=== PATIENT | male | born 1985 | race Hispanic/Latino ===

== ENCOUNTER 2021-12-01 11:05 | Emergency (ER) | payer OTHER ==
[~2021-12-01] VITALS: Ht 167.6 cm; Wt 86.2 kg
[2021-12-01 11:07] VITALS: BP 123/82
[2021-12-01] MEDS ORDERED: LACTATED RINGERS 1000ML 1,000 ML IV ONE (11:30)
[2021-12-01] MEDS ORDERED: LIDOCAINE 1%-EPI 1:100,000 20 ML VIAL IJ SCH (12:00)
[2021-12-01] MEDS ORDERED: CLINDAMYCIN 150 MG CAP PO ONE (12:00)
[2021-12-01] MEDS ORDERED: CLIN-141 PO (12:22)
[2021-12-01] MEDS ORDERED: IBUP-2071 PO (12:22)
== END 2021-12-01 12:44 | disposition home or self-care (01) ==
LOC: EDH 11:05
DX: J36 Peritonsillar abscess (principal)
CPT/HCPCS: 99284; 42700; J3490

== ENCOUNTER 2021-12-02 09:21 | Inpatient (IN) | payer OTHER ==
[~2021-12-02] VITALS: Ht 170.2 cm; Wt 88.9 kg
[~2021-12-02 09:21] MED LIST: CLIN-141 PO; IBUP-2071 PO
[2021-12-02] MEDS ORDERED: ONDANSETRON 4MG INJ IV ONE (10:00)
[2021-12-02] MEDS ORDERED: AMP/SULBAC 1.5GM+NS 100ML 100 ML IV SCH ×2 (10:00→14:00)
[2021-12-02] MEDS ORDERED: UNASYN 1.5GM+NS 100ML IV SCH (10:00)
[2021-12-02] MEDS ORDERED: MORPHINE 4 MG SYG IVP ONE (10:00)
[2021-12-02] MEDS ORDERED: SOLU-MEDROL 125MG VIAL IVP ONE (10:00)
[2021-12-02 10:10] LABS: BASOPHILS % (AUTO) 0.5 % (0.0-5.0); EOSINOPHILS % (AUTO) 0.9 % (0.0-8.0); LYMPHOCYTES % (AUTO) 17.4 % (21.0-51.0); MEAN CORPUSCULAR HEMOGLOBIN 30.7 pg (27.0-33.0); MEAN CORPUSCULAR HGB CONC 34.2 g/dL (32.0-36.0); MEAN CORPUSCULAR VOLUME 89.8 fL (79-99); MONOCYTES % (AUTO) 8.7 % (3.0-13.0); NEUTROPHILS % (AUTO) 72.2 % (40.0-77.0); PLATELET COUNT (AUTO) 190 K/uL (130-400); RED BLOOD CELL COUNT(AUTO) 5.01 MIL/uL (4.50-6.20); RED CELL DISTRIBUTION WIDTH 13.2 % (11.0-15.5); WHITE BLOOD COUNT (AUTO) 11.9 K/uL (4.8-10.8)
[2021-12-02 10:20] LABS: POTASSIUM 4.1 mmol/L (3.5-5.1)
[2021-12-02 10:24] LABS: ALBUMIN 3.6 g/dL (3.5-5.0); TOTAL PROTEIN, SERUM 8.1 g/dL (6.0-8.3)
[2021-12-02] MEDS ORDERED: IOHEXOL-350 50ML VIAL IV ONE (11:14)
[2021-12-02] MEDS ORDERED: ACETAMINOPHEN 325 MG/10.15ML UDCUP PO PRN (14:00)
[2021-12-02] MEDS ORDERED: MORPHINE 4 MG SYG IVP PRN (14:00)
[2021-12-02] MEDS ORDERED: ONDANSETRON 4MG INJ IVP PRN (14:00)
[2021-12-02] MEDS ORDERED: HYDRALAZINE 20MG/ML VIAL IV PRN (14:00)
[2021-12-02] MEDS: 0.9%NACL 1000ML 1,000 ML IV SCH (14:21)
[2021-12-02 16:00] VITALS: BP 171/98
[2021-12-02] MEDS ORDERED: PHARMACY COMMUNICATION MISC SCH (16:00)
[2021-12-02] MEDS ORDERED: SOLU-MEDROL 125MG VIAL IVP SCH (16:00)
[2021-12-02] MEDS: AMP/SULBAC 3GM+NS 100ML 100 ML IV SCH ×2 (17:25→18:05)
[2021-12-03] MEDS: AMP/SULBAC 3GM+NS 100ML 100 ML IV SCH ×4 (00:20→16:07)
[2021-12-03 01:35] VITALS: BP 110/71
[2021-12-03 04:27] VITALS: BP 109/64
[2021-12-03 05:37] LABS: BASOPHILS % (AUTO) 0.1 % (0.0-5.0); HEMATOCRIT 44.8 % (42-54); LYMPHOCYTES % (AUTO) 14.1 % (21.0-51.0); MEAN CORPUSCULAR HEMOGLOBIN 30.8 pg (27.0-33.0); MEAN CORPUSCULAR HGB CONC 34.4 g/dL (32.0-36.0); MEAN CORPUSCULAR VOLUME 89.6 fL (79-99); MONOCYTES % (AUTO) 4.6 % (3.0-13.0); NEUTROPHILS % (AUTO) 80.3 % (40.0-77.0); PLATELET COUNT (AUTO) 253 K/uL (130-400); RED CELL DISTRIBUTION WIDTH 12.9 % (11.0-15.5); WHITE BLOOD COUNT (AUTO) 12.4 K/uL (4.8-10.8)
[2021-12-03 07:13] VITALS: BP 125/75
[2021-12-03] MEDS: 0.9%NACL 1000ML 1,000 ML IV SCH ×3 (10:00→20:00)
[2021-12-03 12:02] VITALS: BP 145/83
[2021-12-03 16:11] VITALS: BP 139/87
[2021-12-03 22:06] VITALS: BP 118/78
[2021-12-04] MEDS: AMP/SULBAC 3GM+NS 100ML 100 ML IV SCH ×2 (00:15→05:52)
[2021-12-04 01:08] VITALS: BP 114/75
[2021-12-04 04:29] VITALS: BP 118/67
[2021-12-04 05:24] LABS: HEMATOCRIT 42.4 % (42-54); MEAN CORPUSCULAR HEMOGLOBIN 30.3 pg (27.0-33.0); MEAN CORPUSCULAR HGB CONC 33.5 g/dL (32.0-36.0); MEAN CORPUSCULAR VOLUME 90.6 fL (79-99); RED BLOOD CELL COUNT(AUTO) 4.68 MIL/uL (4.50-6.20); RED CELL DISTRIBUTION WIDTH 13.1 % (11.0-15.5); WHITE BLOOD COUNT (AUTO) 12.5 K/uL (4.8-10.8)
[2021-12-04] MEDS: 0.9%NACL 1000ML 1,000 ML IV SCH (05:53)
== END 2021-12-04 09:00 | disposition home or self-care (01) | DRG 145 ==
LOC: EDH 09:21 → EDHIP 09:22 → 3BH 16:13
PROVIDERS: ADMIT Hospitalist; ATTEND Hospitalist
PROC: 0C9PXZZ Drainage of Tonsils, External Approach (ICD-10-PCS; principal; 2021-12-03)
DX: J36 Peritonsillar abscess (principal); R13.12 Dysphagia, oropharyngeal phase; E66.9 Obesity, unspecified; Z68.30 Body mass index [BMI] 30.0-30.9, adult
CPT/HCPCS: 36415; 70491; 80048; 80053; 85025; 85027; 87040; 87070; 87076; G0378; J0295; J2270; J2405; J2930; J7030; Q9967